=== PATIENT | male | born 1975 | race Caucasian/White ===

== ENCOUNTER 2018-11-26 17:21 | Emergency (ER) | payer MEDICAID, OTHER ==
[2018-11-26 17:28] VITALS: BMI 29.2
[2018-11-26 17:32] VITALS: BP 149/73; PULSE 122; RESP 18; TEMP 102.4; O2SAT 98
--- NOTE | 2018-11-26 18:08 | ED PDOC ---
Arrival/HPI - General Chief Complaint: Flu-like Symptoms Time Seen by Provider: 11/26/18 17:36 Historian: Patient - History of Present Illness Narrative History of Present Illness (Text): 11/26/18 18:05 43 yo M reports 3 days of fever with bodyaches, sore throat and cough. Otherwise: (-) SOB, (-) chest pain, (-) N/V/D, (-) abdominal pain, (-) flank pain, (-) urinary symptoms, (-) recent travel, (-) sick contacts. PMD [place] Past Medical History - Tetanus Immunization Tetanus Immunization: Unknown - Cardiac Hx Cardiac Disorders: Yes - Psychiatric Hx Depression: No Hx Emotional Abuse: No Hx Physical Abuse: No Hx Substance Use: No - Suicidal Assessment Feels Threatened In Home Enviroment: No Family/Social History Family/Social History: No Known Family HX Smoking Status: Never Smoked Hx Alcohol Use: Yes Frequency of alcohol use: Socially Hx Substance Use: No Allergies/Home Meds Allergies/Adverse Reactions: Allergies No Known Allergies Allergy (Verified 11/26/18 17:32) Home Medications: Home Meds Medication Instructions Recorded Confirmed Simvastatin 10 mg PO DAILY 11/26/18 11/26/18 Review of Systems - Review of Systems Constitutional: Fevers. absent: Fatigue ENT: Sore Throat. absent: Rhinorrhea, Sinus Congestion Respiratory: Cough. absent: SOB, Sputum Cardiovascular: absent: Chest Pain, Palpitations Gastrointestinal: absent: Abdominal Pain, Nausea, Vomiting Genitourinary Male: absent: Dysuria, Frequency Musculoskeletal: absent: Arthralgias, Back Pain Skin: absent: Rash, Pruritis, Skin Lesions Neurological: absent: Headache, Dizziness Physical Exam Vital Signs Temp Pulse Resp BP Pulse Ox 11/26/18 17:57 102.4 F H 11/26/18 17:28 102.4 F H 122 H 18 149/73 98 Temperature: Febrile Blood Pressure: Normal Pulse: Tachycardic Respiratory Rate: Normal Appearance: Positive for: Well-Appearing, Non-Toxic, Comfortable Pain Distress: None Mental Status: Positive for: Alert and Oriented X 3 - Systems Exam Head: Present: Atraumatic, Normocephalic Pupils: Present: PERRL Extroacular Muscles: Present: EOMI Conjunctiva: Present: Normal Ears: Present: Normal, NORMAL TM Mouth: Present: Moist Mucous Membranes Pharnyx: Present: Normal. No: ERYTHEMA, EXUDATE Neck: Present: Normal Range of Motion. No: Meningeal Signs, Lymphadenopathy Respiratory/Chest: Present: Clear to Auscultation, Good Air Exchange. No: Respiratory Distress, Accessory Muscle Use Cardiovascular: Present: Regular Rate and Rhythm, Normal S1, S2. No: Murmurs Abdomen: No: Tenderness, Distention, Peritoneal Signs Back: Present: Normal Inspection Upper Extremity: Present: Normal Inspection. No: Cyanosis, Edema Lower Extremity: Present: Normal Inspection. No: Edema Neurological: Present: GCS=15, CN II-XII Intact, Speech Normal, Motor Func Grossly Intact, Normal Sensory Function Skin: Present: Warm, Dry, Normal Color. No: Rashes Psychiatric: Present: Alert, Oriented x 3, Normal Insight, Normal Concentration Medical Decision Making ED Course and Treatment: 11/26/18 18:08 Plan : - Rapid flu - Rapid strep Rapid flu : (-) Rapid strep : (-) On reevaluation, patient remains awake alert and oriented 3 in no acute distress, diagnostic results d/w the patient, diagnosis of viral illness d/w the patient. Advised rest, drink plenty of fluids, motrin/tylenol for fever and pain. Patient is requesting antibiotics, however patient encouraged that his PE is otherwise wnl and both strep and flu test are (-), therefore he likely has a viral illness and antibiotics are not indicated at this time. Patient is visibly upset that he is not receiving antibiotics. Patient encouraged to follow up with primary care physician in 1-2 days without fail. Advised to take medication as prescribed. Return to the emergency room at any time for any new or worsening symptoms. Patient is refusing repeat vitals and left the ER without his Rxs or d/c papers. - Medication Orders Current Medication Orders: Discontinued Medications Ibuprofen (Motrin Tab) 600 mg PO STAT STA Stop: 11/26/18 17:37 Last Admin: 11/26/18 17:57 Dose: 600 mg MAR Pain/Vitals Document 11/26/18 17:57 BB (Rec: 11/26/18 17:58 BB [id number] Vitals Temperature (97.6 F-99.6 F) 102.4 F Temperature Source Oral - PA / SIMULATION SOFTWARE ENGINEER / Resident Statement MD/DO has reviewed & agrees with the documentation as recorded. Disposition/Present on Arrival - Present on Arrival Any Indicators Present on Arrival: No History of DVT/PE: No History of Uncontrolled Diabetes: No Urinary Catheter: No History of Decub. Ulcer: No History Surgical Site Infection Following: None - Disposition Have Diagnosis and Disposition been Completed?: Yes Diagnosis: Fever, Viral illness Disposition: HOME/ ROUTINE Disposition Time: 19:15 Patient Plan: Discharge Condition: STABLE Discharge Instructions (ExitCare): Fever, Adult (DC), Viral Syndrome (DC) Additional Instructions: Thank you for letting us take care of you today. You were treated for fever, viral illness. The emergency medical care you received today was directed at your acute symptoms. If you were prescribed any medication, please fill it and take as directed. It may take several days for your symptoms to resolve. Return to the Emergency Department if your symptoms worsen, do not improve, or if you have any other problems. Please contact your doctor in 2 days for re-evaluation and follow up. Bring any paperwork you were given at discharge with you along with any medications you are taking to your follow up visit. Our treatment cannot replace ongoing medical care by a primary care provider (PCP) outside of the emergency department. Thank you for allowing the [facility] team to be part of your care today. Prescriptions: Ibuprofen [Motrin Tab] 600 mg PO QID PRN #20 tab PRN Reason: Fever >100.4 F Referrals: Bucky Monteiro MD [Primary Care Provider] - Follow up with primary Forms: [employer] ([place]), WORK NOTE
== END 2018-11-26 19:45 | disposition home or self-care (01) ==
LOC: ED 17:21
DX: B34.9 Viral infection, unspecified (principal); R50.9 Fever, unspecified